=== PATIENT | female | born 1950 | race Caucasian/White ===

== ENCOUNTER → 2018-01-04 | Outpatient (REF) | payer BC, MEDICARE ==
[~2018-01-04] MED LIST: ACE325 PO; ADV250/50 INH; AMOX-559 PO; ATOR40TA69 PO; CALC500T42 PO; CIP500 PO; DAR75 PO; DEXL60CA6 PO; ESCI5TAB10 PO; ESOM40CA42 PO; ESTR1VAG VG; EXEN2VIA SQ; FEXO30TA36 PO; GLUC500C29 PO; IBU600 PO; IBU800 PO; IBUP600T22 PO; LOR5 PO; LOR5/325 PO; METF-421 PO; METFORMIN PO; MOD100 PO; MULT1CAP41 PO; NIA100 PO; PER PO; PRA0.25 PO; QUIN10TA24 PO; TRILI135PT PO
== END ==
LOC: ZZSENDIN 09:48
PROVIDERS: ATTEND Family Medicine
DX: R80.9 Proteinuria, unspecified (principal)
CPT/HCPCS: 84156

== ENCOUNTER → 2018-03-01 | Outpatient (CLI) | payer BC ==
--- NOTE | 2018-03-01 11:33 | RADIOLOGY IMAGING REPORT ---
FACILITY: [facility] PATIENT NAME: Marnie Cespedes : 1950 MR: [id number] V: [id number] EXAM DATE: ORDERING PHYSICIAN: ROBBIE MERINO TECHNOLOGIST: Location: [facility] [place] Patient: Marnie Cespedes : 1950 Visit/Account:[id number] Date of Sevice: 03/01/2018 KIDNEYS HISTORY: Proteinuria ADDITIONAL HISTORY: None. COMPARISON: None. FINDINGS: Kidneys: Right kidney- 12.2 cm, normal parenchymal thickness and echogenicity. Left kidney- 12.6 cm, normal parenchymal thickness and echogenicity. There is a cystic lesion in the left renal pelvis which contains at least one septation which measures 2.8 x 2.8 x 2.8 cm diameter. It is unchanged in appearance pre and post void. Uniform and symmetric blood flow in each kidney by Doppler ultrasound. Hydronephrosis: None. Bladder: Very minimal debris is seen in the bladder which probably represents the spill protein. No mural wall masses seen.. Bilateral ureteral jets: Documented Prevoid volume 790 mL and post void volume 152 mL. Substantial postvoid residual. Abdominal aorta and IVC: Patent by Doppler ultrasound. IMPRESSION: Indeterminant cystic but slightly complex 2.8 cm left renal lesion. This probably represents a compl ex cyst but for which further evaluation. Recommend multiphasic contrasted follow-up MRI or CT of th e kidneys. Minimal debris in the urinary bladder. Substantial postvoid residual. Report Dictated By: Modesto Mahoney MD at 03/01/2018 11:23 AM Report E-Signed By: Modesto Mahoney MD at 03/01/2018 11:29 AM WSN:[email or web address]
== END ==
LOC: US 02:29
PROVIDERS: ATTEND Internal Medicine Nephrology
DX: Z13.9 Encounter for screening, unspecified (principal); R33.9 Retention of urine, unspecified; N28.1 Cyst of kidney, acquired
CPT/HCPCS: 36415; 76705; 82040; 82306; 82310; 82330; 82374; 82435; 82565; 82570; 82947; 83735; 83970; 84100; 84132; 84156; 84295; 84520; 86334

== ENCOUNTER → 2018-03-10 | Outpatient (CLI) | payer BC ==
[~2018-03-10] MED LIST changes: +IOPAMIDOL 76% 75 ML INFUS BTL 75 ML ONE
--- NOTE | 2018-03-10 10:22 | RADIOLOGY IMAGING REPORT ---
FACILITY: [facility] - [place] PATIENT NAME: Marnie Cespedes : 1950 MR: [id number] V: [id number] EXAM DATE: ORDERING PHYSICIAN: ROBBIE MERINO TECHNOLOGIST: Location: [facility] Patient: Marnie Cespedes : 1950 Visit/Account:[id number] Date of Sevice: 03/10/2018 ABDOMEN/PELVIS WITH CONTRAST Additional pertinent History: Complex renal cyst TECHNIQUE: Spiral scan was through the abdomen and pelvis during injection of nonionic iodinated in travenous contrast. Contrast: 75 mL of IV Isovue-370. COMPARISON STUDIES: Ultrasound from 03/01/2018. One of the following dose optimization techniques was utilized in the performance of this exam: Autom ated exposure control; adjustment of the mA and/or kV according to the patient's size; or use of an i terative reconstruction technique. Specific details can be referenced in the facility's radiology C T exam operational policy. FINDINGS: Liver / biliary: Status post cholecystectomy. Pancreas: negative Spleen: negative Adrenal glands: negative Kidneys / retroperitoneum: Normal nephrograms bilaterally. Both kidneys demonstrate parapelvic cyst the most prominent in the inferior aspect of the left renal pelvis corresponding to the ultrasound. This hypoattenuated fluid collection with Hounsfield units ranging between 6-9 6-9 HU units. No abno rmal enhancing process within the fluid collections. Pelvic structures: Status post hysterectomy. Pessary noted within the vagina. There is a 2.7 x 2 cm fatty tumor with adjacent calcifications projecting from the left ovary (image 112 series 2). Th is is compatible with a dermoid. Bowel / peritoneum / mesenteries: Visualized bowel demonstrates no mass lesion or inflammation.. Vessels: negative Musculoskeletal / Body wall: Pedicle fusion screws at the L4-5 level. Prosthetic discs well-position ed. Lymph node assessment: negative Lower chest: negative IMPRESSION: 1. Left parapelvic cysts accounting for the finding on ultrasound. 2. Left ovarian dermoid. Report Dictated By: Luis Whipple MD at 03/10/2018 9:41 AM Report E-Signed By: Luis Whipple MD at 03/10/2018 10:18 AM WSN:[email or web address]
== END ==
LOC: CT 00:57
PROVIDERS: ATTEND Internal Medicine Nephrology
DX: N28.1 Cyst of kidney, acquired (principal); Z90.79 Acquired absence of other genital organ(s); Z96.0 Presence of urogenital implants; D27.1 Benign neoplasm of left ovary
CPT/HCPCS: 74177; Q9967

== ENCOUNTER → 2018-08-02 | Outpatient (CLI) | payer BC ==
[~2018-08-02] MED LIST changes: -IOPAMIDOL 76% 75 ML INFUS BTL 75 ML ONE; -METF-421 PO; +METF-452 PO
[2018-08-02 13:46] LABS: PLATELET COUNT, AUTOMATED 262 K/uL (150-450)
--- NOTE | 2018-08-02 13:46 | EKG ---
FACILITY: [facility] PATIENT NAME: KIMBERLEY HUMPHRIES : [id number] MR: [id number] V: [id number] EXAM DATE: ORDERING PHYSICIAN: TIN RAE TECHNOLOGIST: Test Reason : Pre-op Blood Pressure : / mmHG Vent. Rate : 078 BPM Atrial Rate : 078 BPM P-R Int : 186 ms QRS Dur : 078 ms QT Int : 408 ms P-R-T Axes : 065 052 069 degrees QTc Int : 465 ms Normal sinus rhythm Normal ECG When compared with ECG of 11-DEC-2015 10:28, No significant change was found Confirmed by TIN SANCHEZ ([id number]) on 08/03/2018 6:27:47 AM Referred By: Confirmed By:TIN SANCHEZ
== END ==
LOC: LAB 13:16
PROVIDERS: ATTEND Anesthesiology
DX: Z01.812 Encounter for preprocedural laboratory examination (principal); Z01.810 Encounter for preprocedural cardiovascular examination; M23.42 Loose body in knee, left knee; M22.42 Chondromalacia patellae, left knee
CPT/HCPCS: 36415; 82040; 82247; 82310; 82374; 82435; 82565; 82947; 84075; 84132; 84155; 84295; 84450; 84460; 84520; 85025; 93005

== ENCOUNTER 2018-12-30 00:45 | Day surgery (SDC) | payer BC, MEDICARE ==
[~2018-12-30] VITALS: Ht 162.6 cm; Wt 123.4 kg
[~2018-12-30 00:45] MED LIST changes: +EMPA1TAB PO; +FENO145T36 PO; +LISI-353 PO; +METO100T20 PO; +PIOG30TA71 PO
[2018-12-30] MEDS ORDERED: PROPOFOL EMUL(*) 10MG/ML 20 ML 20 ML ONE ×2 (07:17→08:45)
[2018-12-30 07:18] VITALS: BP 136/74
[2018-12-30] MEDS ORDERED: NORMOSOL R SOLN(*) 1000 ML BAG 1,000 ML IV PRN (07:20)
[2018-12-30] MEDS ORDERED: LIDOCAINE/SOD BICARB 8.4% SYR ID ONE (07:20)
[2018-12-30 09:03] VITALS: BP 107/64
[2018-12-30 09:30] VITALS: BP 108/68
--- NOTE | 2018-12-30 09:34 | NUR ---
09 PT ARRIVED TO [place] VIA CART, SAFETY MAINTAINED, SBAR FROM Colton PINK RN AND GELACIO RODRIGUEZ, PT AWAKE AND CONVERSING, DREW AT BEDSIDE, VSS 904 DR. RINCON AT BEDSIDE TO DISCUSS FINDINGS 909 PT TOLERATING COFFEE AND BREAKFAST BROUGHT UP FORM CAFETERIA BY 929 VSS, ROOM AIR TRIAL
[2018-12-30 09:42] VITALS: BP 105/54
[2018-12-30 09:44] VITALS: BP 101/70
--- NOTE | 2018-12-30 10:05 | NUR ---
0940 PT WOULD LIKE STARTING TO GET READY, ORTHOSTATICS DONE, STABLE, D/C FROM IV TUBING, ALLOWED TO DRESS, SUCCESSFUL AIR TRIAL, D/C INSTRUCTIONS COVERED DURING ROOM AIR TRIAL, ALL QUESTIONS ANSWERED 0950 REASSESSED, IV OUT, PRESSURE DRESSING APPLIED 1000 OUT TO CAR VIA FOOT, DECLINES WC, STEADY ON FEET, ALL BELONGINGS WITH PT
== END 2018-12-30 10:00 | disposition home or self-care (01) ==
LOC: OR 00:45
PROVIDERS: ATTEND Family Medicine
DX: Z12.11 Encounter for screening for malignant neoplasm of colon (principal); E11.9 Type 2 diabetes mellitus without complications
CPT/HCPCS: 00812; 36416; 45378; 82948; J2704

== ENCOUNTER → 2019-01-10 | Outpatient (REF) | payer BC, MEDICARE | LOC: ZZSENDIN 10:26 | PROVIDERS: ATTEND Family Medicine | DX: Z01.818 Encounter for other preprocedural examination (principal) | CPT/HCPCS: 81001 ==

== ENCOUNTER 2019-02-01 00:46 | Observation (INO) | payer BC, MEDICARE ==
[2019-01-31 11:07] LABS: INR 0.95
[~2019-02-01] VITALS: Ht 162.6 cm; Wt 124.3 kg
[2019-02-01] VITALS (11 sets, daily range): BP systolic 106–134; BP diastolic 41–80
[~2019-02-01 00:46] MED LIST changes: +MULT1CAP59 PO
[2019-02-01] MEDS ORDERED: ROPIVACAINE/EPI/CLONIDINE/KET 50 ML SYRINGE INJ ONE (07:25)
[2019-02-01] MEDS ORDERED: LIDOCAINE/SOD BICARB 8.4% SYR ID ONE (07:25)
[2019-02-01] MEDS ORDERED: NORMOSOL R SOLN(*) 1000 ML BAG 1,000 ML IV PRN (07:25)
[2019-02-01] MEDS ORDERED: PREGABALIN 150 MG CAPSULE PO ONE (07:25)
[2019-02-01] MEDS ORDERED: MIDAZOLAM 2 MG/2 ML VIAL IVP PRN (07:25)
[2019-02-01] MEDS ORDERED: TRANEXAMIC AC 1000 MG/10ML SDV 1,000 MG in DEXTROSE 5% 50 ML BAG 50 ML IV ONE (07:25)
[2019-02-01] MEDS ORDERED: ceFAZolin(*) 2GM/D5W 50ML 50 ML IVPB ONE (07:25)
[2019-02-01] MEDS ORDERED: ACETAMINOPHEN 500 MG TAB PO ONE (07:25)
[2019-02-01] MEDS ORDERED: CELECOXIB 200 MG CAP PO ONE (07:25)
[2019-02-01] MEDS ORDERED: BACITRACIN 50000 UNIT/VIAL 100,000 UNIT in NS 0.9% 3000 ML IRRIGATION BAG 3,000 ML IR ONE (07:25)
[2019-02-01] MEDS ORDERED: LIDO/EPI 2% MDV 1:100,000 20ML INFIL ONE (08:08)
[2019-02-01] MEDS ORDERED: ROPIVACAINE 0.5% 20 ML VIAL ONE (08:08)
[2019-02-01] MEDS ORDERED: APREPITANT 40 MG CAP PO ONE (08:10)
[2019-02-01] MEDS ORDERED: PROPOFOL(*)1000 MG/100 ML VIAL 100 ML ONE (08:34)
[2019-02-01] MEDS ORDERED: HYDROmorphone HCL 2 MG/ML SDV ONE (09:20)
[2019-02-01] MEDS ORDERED: SUGAMMADEX SOD 200 MG/2 ML SDV ONE ×2 (09:20→10:20)
[2019-02-01] MEDS ORDERED: KETAMINE HCL-NS 50 MG/5 ML SYR ONE (09:20)
[2019-02-01] MEDS ORDERED: PROPOFOL EMUL(*) 10MG/ML 20 ML 20 ML ONE (09:20)
[2019-02-01] MEDS ORDERED: LIDOCAINE MPF 1% 5 ML VIAL ONE (09:20)
[2019-02-01] MEDS ORDERED: ROCURONIUM BROM 10 MG/ML 10 ML ONE (09:20)
[2019-02-01] MEDS ORDERED: LR 1000 ML BAG 1000 ML IV PRN (11:05)
[2019-02-01] MEDS ORDERED: BISACODYL 10 MG SUPP PR PRN (11:05)
[2019-02-01] MEDS ORDERED: FLUSH 10 ML SYR IVP PRN (11:05)
[2019-02-01] MEDS ORDERED: PROMETHAZINE 25 MG/ML 1 ML AMP IVP PRN (11:05)
[2019-02-01] MEDS ORDERED: MAGNESIUM HYDROXIDE* 30ML UDCP PO PRN (11:05)
[2019-02-01] MEDS ORDERED: ONDANSETRON 4 MG/2 ML VIAL IVP PRN (11:05)
[2019-02-01] MEDS ORDERED: HYDROmorphone HCL 2 MG/ML SDV IVP PRN (11:05)
[2019-02-01] MEDS ORDERED: MAGNESIUM CITRATE 300 ML BTL PO PRN (11:05)
[2019-02-01] MEDS ORDERED: ZOLPIDEM TARTRATE 5 MG TAB PO PRN (11:05)
--- NOTE | 2019-02-01 11:06 | OPERATIVE REPORT 1 ---
EVENT DATE: February 01, 2019 SURGEON: Ilya Nova MD ANESTHESIOLOGIST: Jimmy De Jesus MD ANESTHESIA: General. GEOGRAPHIC INFORMATION SYSTEMS ENGINEER: Naren Navas PA-C PREOPERATIVE DIAGNOSIS Right shoulder rotator cuff tear arthropathy. POSTOPERATIVE DIAGNOSIS Right shoulder rotator cuff tear arthropathy. PROCEDURES PERFORMED 1. Right cuff tear arthropathy hemiarthroplasty. 2. Removal of implants deep x4. FINDINGS The patient had a torn rotator cuff that was not amenable for repair so, therefore, we did a CTA hemiarthroplasty replacement on her. ESTIMATED BLOOD LOSS 200 mL. DRAINS None. COMPLICATIONS None. TOURNIQUET TIME Not applicable. IMPLANTS USED [employer] CTA dana with a size 46 x 23 head and an 8 stem. SPECIMENS None. INDICATIONS/HISTORY This patient is a 68-year old female that presented to my clinic for evaluation of right shoulder pain and irritation. She had multiple rotator cuff repairs done in the past. They had failed so she wanted to go ahead with CTA hemiarthroplasty to try and get some pain relief. Associated with it is she is very young to be doing any kind of reverse so, therefore, we got her set up to do the CTA dana. She understands there is no guarantee that it makes her better and it may continue to give her trouble and issues and we may have to convert to a reverse at a later time but that we are trying to get away with it earlier. I went over the risks and benefits associated with procedure and informed consent was obtained and we got her set up to do this today. DESCRIPTION OF PROCEDURE The patient was brought into the operating room. She and the procedure were both verified. She was placed supine on the operating room and induced intubated by anesthesia. She was then put in a beach chair type position and the right arm was prepped and draped in the usual fashion. A time-out was observed, verifying the correct patient and procedure. The standard incision was made in the deltopectoral interval after injecting the skin with lidocaine. It was taken through the skin and subcutaneous tissue until I got down to the deltopectoral interval. Once I identified the cephalic vein, I went just medial to the cephalic vein and then went through the deltopectoral interval go get down to the clavipectoral fascia. Once I got down to this area, I was then able to peel back the subscap and tag it for later repair. Then the supraspinatus and mostly infraspinatus were noted to be torn, irrigated and gone. I then removed a significant amount of sutures and anchors from this area to try and make it amenable for the CTA dana. I then was able to irrigate with a copious amount of saline, look at the socket and then verify that there were no signs of arthritis on the glenoid and, therefore, then cut the rest of the biceps tendon which we had tenodesed to the pec earlier. Once this was in good position, I then turned attention back to the humerus, where I was then able to make a bur hole in the top part of the humerus and then using curette I found the canal. This was then followed by reaming up to an 8 reamer, which had good bite on each side so, therefore, this was the final reaming chosen. I then cut off the humeral head in the standard fashion and then used the cookie-cutter broach in order to cut into the humerus itself. Once I did this, I was then able to put in the trial 8 stem without any difficulty. We then put on the attachment for the CTA dana and then cut the superior aspect of the CTA dana without any difficulty. Once I was able to do this, I then removed more sutures and another anchor from this area and then rongeured out some of the irritated tissue associated with this. We then put some bone graft from the humeral head and then impacted bone graft in the portion of the canal. I then was able to irrigate again with copious amount of saline using pulsatile lavage and Aricept. I then was able to pass six sutures through the lesser tuberosity in order to make it amenable for the subscap repair. I then trialed the CTA dana with an 18 thickness first and then went to a 23 thickness, which had better contour and also better tension associated with it so this was the final prosthesis chosen on the 8 stem. I put in the final prosthesis and then reduced it and made sure it was still moving in adequate directions. I then repaired the subscap utilizing the sutures I had previously through the subscap itself with six sutures in this area. I irrigated again with Aricept and pulsatile lavage. This was then followed by closure of the deltopectoral interval with an 0 Stratafix followed by 2-0 Stratafix in the subcutaneous tissue and then a 4-0 Monocryl in the skin. I then anesthetized it again and dressed it with Steri-Strips, gauze, 4x4's and soft dressing. The patient was awakened, extubated and transferred to PACU in stable condition. AZEEM
--- NOTE | 2019-02-01 11:37 | RADIOLOGY IMAGING REPORT ---
FACILITY: [facility] PATIENT NAME: Marnie Cespedes : 1950 MR: [id number] V: [id number] EXAM DATE: ORDERING PHYSICIAN: DIONICIO FREEMAN TECHNOLOGIST: [facility] Patient: Marnie Cespedes : 1950 Visit/Account:[id number] Date of Sevice: 02/01/2019 SHOULDER 1 VIEW RIGHT Indication: S/P HEMIARTHROPLASTY RIGHT SHOULDER, CHECK PLACEMENT Comparison: None. Findings: Postoperative changes from a right shoulder hemiarthroplasty available. Hardware appears i n good alignment. IMPRESSION: Normal-appearing postoperative changes right shoulder hemiarthroplasty. Report Dictated By: Garrett Hickman at 02/01/2019 11:31 AM Report E-Signed By: Garrett Hickman at 02/01/2019 11:33 AM WSN:[email or web address]
[2019-02-01] MEDS ORDERED: INSULIN HUM LISPRO 100 UN/ML 3 ML VIAL SUBQ PRN (13:45)
--- NOTE | 2019-02-01 13:58 | Hospitalist Consultation ---
History of Present Illness Requesting Physician Dr. Nova Reason for Consult Medical Management of Comorbidities Chief Complaint s/p right shoulder hemiarthroplasty History of Present Illness She was admitted s/p right shoulder hemiarthroplasty. It is reported the surgery went well and without complication. History Problems: (1) Hypertension Status: Chronic (2) Hyperlipidemia Status: Chronic (3) GILBERTO (obstructive sleep apnea) Status: Chronic (4) Depression Status: Chronic (5) Type 2 diabetes mellitus Status: Chronic (6) Bladder cancer Status: Chronic Home Meds Reported Medications Multivitamin (MULTIVITAMINS) 1 Each Capsule, 1 EACH PO QDAY, CAPSULE 01/25/19 Empagliflozin/Linagliptin (Glyxambi 25 mg-5 mg Tablet) 1 Each Tablet, 1 TAB PO DAILY 12/23/18 Darifenacin Hydrobromide (ENABLEX) 7.5 Mg Tab.er.24h, 7.5 MG PO DAILY 12/23/18 Fenofibrate Nanocrystallized (FENOFIBRATE) 145 Mg Tablet, 145 MG PO QDAY 12/23/18 Pioglitazone Hcl (PIOGLITAZONE HCL) 30 Mg Tablet, 30 MG PO QDAY 12/23/18 Metoprolol Succinate (METOPROLOL SUCCINATE) 100 Mg Tab.er.24h, 1 TAB PO QDAY, TAB 12/23/18 Lisinopril/Hydrochlorothiazide (LISINOPRIL-HCTZ 20-12.5 MG TAB) 1 Each Tablet, 1 EACH PO DAILY 12/23/18 Metformin Hcl (METFORMIN HCL) 1,000 Mg Tablet, 1 TAB PO BID, TAB 11/21/15 Atorvastatin Calcium (ATORVASTATIN CALCIUM) 40 Mg Tablet, 2 TAB PO QDAY, TAB 11/21/15 Dexlansoprazole (DEXILANT) 60 Mg , 60 MG PO QDAY 11/21/15 Escitalopram Oxalate (Lexapro) 5 Mg Tablet, 5 MG PO HS, 0 Refills 08/15/10 Pramipexole Dihydrochloride (Mirapex) 0.25 Mg Tab, 0.25 MG PO QHS, 0 Refills 08/15/10 Allergies: Coded Allergies: codeine (Verified Allergy, Severe, RASH, 12/23/18) tramadol (Verified Allergy, Severe, HIVES,RASH, SWELLING-LIPS, 12/23/18) warfarin (Verified Allergy, Severe, ANAPHYLAXIS, 05/29/13) Sulfa (Sulfonamide Antibiotics) (Verified Allergy, Intermediate, RASH, NIGHT SWEATS, 05/29/13) diphenhydramine (Verified Allergy, Intermediate, RESTLESSNESS, 05/29/13) oxycodone (Verified Adverse Reaction, Unknown, MOOD SWINGS, 05/29/13) Hx Smoking: No Exposure to Second Hand Smoke?: Yes (CHILDHOOD) Caffeine Intake: Coffee Caffeine/Cups Per Day: 2 CPD Hx Substance Use Disorder: No Social Drug Use: Never Review of Systems All Systems Reviewed/Normal: Yes, Except as Noted Exam Vital Signs Vital Signs Date Time Temp Pulse Resp B/P (MAP) Pulse Ox O2 Delivery O2 Flow Rate FiO2 02/01/19 12:38 93 Nasal Cannula 3.0 02/01/19 12:30 98.4 62 16 110/63 (79) General Appearance: Alert, Awake, No Acute Distress, Afebrile Cardiovascular: Regular Rate and Rhythm Respiratory: No Respiratory Distress, Clear to Auscultation GI: Abd Soft and Non-Tender Psych: Alert & Oriented X3, Appropriate Mood & Affect Assessment and Plan Problems: (1) Status post right shoulder hemiarthroplasty Status: Acute Assessment & Plan: Followed by Dr. Nova. She will likely discharge tomorrow. (2) Hypertension Status: Chronic Assessment & Plan: Continue chronic Metoprolol and Lisinopril with hold parameters. Will hold hydrochlorothiazide at this time. (3) Hyperlipidemia Status: Chronic Assessment & Plan: Continue chronic Fenofibrate and Atorvastatin. (4) Type 2 diabetes mellitus Status: Chronic Assessment & Plan: Continue chronic Metformin (starting tomorrow). Will hold Pioglitazone and Glyxambi. She will be placed on SS insulin #2, ADA diet and AC/ HS blood glucose checks. (5) GILBERTO (obstructive sleep apnea) Status: Chronic Assessment & Plan: Continue chronic CPAP. (6) Depression Status: Chronic Assessment & Plan: Continue chronic Lexapro. (7) Bladder cancer Status: Chronic Assessment & Plan: Continue chronic Enablex. (8) GERD (gastroesophageal reflux disease) Status: Chronic Assessment & Plan: Continue chronic PPI. Venous Thromboembolism Antithrombotics Is Pt On Any Antithrombotics?: No Exam Sepsis Risk: No Definite Risk Problem Qualifiers (1) Hypertension: Hypertension type: essential hypertension Qualified Codes: I10 - Essential (primary) hypertension WILFRIDO MADRIGAL FORENSICS ANALYST Feb 01, 2019 13:58
[2019-02-01] MEDS: ceFAZolin(*) 2GM/D5W 50ML 50 ML IVPB SCH ×2 (15:22→23:57)
--- NOTE | 2019-02-01 15:23 | NUR ---
Occupational Therapy Impression Pt alert, agreeable to OT evaluation. Educated on ther ex per protocol, wear/fit of sling, precautions, and ADLs. Nerve block intact, pt able to wiggle fingers. VSS throughout. Pt declined to get OOB at this time, eating lunch with no complaints. Will complete evaluation and treatment tomorrow morning. Occupational Therapy Goals Patient's Goal
[2019-02-01] MEDS ORDERED: ESCITALOPRAM OXALATE 10 MG TAB PO SCH (21:00)
[2019-02-01] MEDS ORDERED: PRAMIPEXOLE DIHYDROCHL 0.25 MG PO SCH (21:00)
[2019-02-02 05:46] VITALS: BP 146/62
[2019-02-02 07:00] VITALS: BP 129/70
[2019-02-02] MEDS ORDERED: OXYC-865 PO (07:39)
[2019-02-02] MEDS ORDERED: ACETAMINOPHEN 500 MG TAB PO PRN (08:15)
[2019-02-02] MEDS: ceFAZolin(*) 2GM/D5W 50ML 50 ML IVPB SCH (08:45)
[2019-02-02] MEDS ORDERED: METOPROLOL SUCC XL 50 MG TABCR 50 MG TAB.ER.24H PO SCH (09:00)
[2019-02-02] MEDS ORDERED: ATORVASTATIN 40 MG TAB PO SCH (09:00)
[2019-02-02] MEDS ORDERED: metFORMIN HCL 500 MG TAB PO SCH (09:00)
[2019-02-02] MEDS ORDERED: FENOFIBRATE,MICRON 145 MG TAB PO SCH (09:00)
[2019-02-02] MEDS ORDERED: LISINOPRIL 20 MG TAB PO SCH (09:00)
[2019-02-02] MEDS ORDERED: PANTOPRAZOLE SOD 40 MG TABEC PO SCH (09:00)
[2019-02-02] MEDS ORDERED: DARIFENACIN 7.5 MG PO SCH (09:00)
--- NOTE | 2019-02-02 09:22 | NUR ---
Occupational Therapy Impression Pt alert, agreeable to OT tx. Educated on ther ex per protocol, wear/fit of sling, precautions, and ADLs. No pain reported. SpO2 85% on room air. SpO2 >90% on 1-1.5L. Pt reports assist from family for ADLs/IADLs as needed. Pt with no further questions/concerns for OT at this time. Ready for discharge home. Plan for follow-up with Dr. Nova in 2 weeks prior to initiating outpatient PT. Occupational Therapy Goals Patient's Goal
--- NOTE | 2019-02-02 11:26 | Hospitalist Progress Note ---
Subjective Progress Notes Subjective She was admitted s/p shoulder surgery. She had no acute events overnight. Patient Complains of: Cardiovascular: No: Chest Pain Respiratory: No: Shortness of Breath Physical Exam Vital Signs Date Time Temp Pulse Resp B/P (MAP) Pulse Ox O2 Delivery O2 Flow Rate FiO2 02/02/19 08:09 84 02/02/19 07:30 Nasal Cannula 1.0 02/02/19 07:00 98.8 80 16 129/70 (89) Intake and Output 02/02/19 00:59 Intake Total 1878 ml Balance 1878 ml Intake Oral 0 ml IV Total 1878 ml # Voids 2 General Appearance: Alert, Awake, No Acute Distress, Afebrile Neuro: No Gross deficits Cardiovascular: Regular Rate and Rhythm Respiratory: No Respiratory Distress, Clear to Auscultation Psych: Alert & Oriented X3, Appropriate Mood & Affect Result Diagram: 02/02/19 0610 Assessment and Plan Problems: (1) Status post right shoulder hemiarthroplasty Status: Acute Assessment & Plan: Followed by Dr. Nova. (2) Hypertension Status: Chronic Assessment & Plan: Continue chronic Metoprolol and Lisinopril/HCTZ with hold parameters. (3) Hyperlipidemia Status: Chronic Assessment & Plan: Continue chronic Fenofibrate and Atorvastatin. (4) Type 2 diabetes mellitus Status: Chronic Assessment & Plan: Continue chronic Metformin, pioglitazone and Glyxambi. She was placed on SS insulin #2, ADA diet and AC/ HS blood glucose checks. (5) GILBERTO (obstructive sleep apnea) Status: Chronic Assessment & Plan: Continue chronic CPAP. (6) Depression Status: Chronic Assessment & Plan: Continue chronic Lexapro. (7) Bladder cancer Status: Chronic Assessment & Plan: Continue chronic Enablex. (8) GERD (gastroesophageal reflux disease) Status: Chronic Assessment & Plan: Continue chronic PPI. Exam Sepsis Risk: No Definite Risk Problem Qualifiers (1) Hypertension: Hypertension type: essential hypertension Qualified Codes: I10 - Essential (primary) hypertension WILFRIDO MADRIGAL SALES REPRESENTATIVE GROC[employer]IES Feb 02, 2019 11:26
== END 2019-02-02 11:15 | disposition home or self-care (01) ==
LOC: OR 00:46 → MED 12:00
PROVIDERS: ADMIT Orthopaedic Surgery; ATTEND Orthopaedic Surgery
DX: M75.101 Unspecified rotator cuff tear or rupture of right shoulder, not specified as traumatic (principal); E11.9 Type 2 diabetes mellitus without complications; I10 Essential (primary) hypertension; E78.00 Pure hypercholesterolemia, unspecified; Z79.01 Long term (current) use of anticoagulants
CPT/HCPCS: 23470; 36415; 36416; 73020; 82948; 85014; 85018; 85610; 86850; 86900; 86901; 97110; 97165; 97535; A4565; C1776; G0378; J1170; J2001; J2405; J2704; J2795; J3490; J7120; J8501; J0690